=== PATIENT | male | born 1955 | race Caucasian/White ===

== ENCOUNTER 2018-05-31 09:58 | Day surgery (SDC) | payer BC ==
[~2018-05-31 09:58] MED LIST: BALANCED SALT IRRIG SOLN COMB2 15 ML BOTTLE ONE; BUPIVACAINE HCL 0.75% INJ/PF (7.5 MG/1 ML) 10 ML SDV ONE; LIDOCAINE 2%/EPINEPHRINE INJ 20 ML VIAL ONE; POVIDONE-IODINE 5% OPH PREP SOLN 30 ML ONE; TETRACAINE HCL 0.5% OPH SOLN 4 ML ONE; THROMBIN (BOVINE) TOPICAL 5000 UNIT VIAL ONE
[2018-05-31] MEDS ORDERED: LIDOCAINE 2% INJ-PF (20 MG/ML) 10 ML AMPUL ONE (11:49)
[2018-05-31] MEDS ORDERED: MIDAZOLAM 2 MG/2 ML INJ ONE (11:50)
[2018-05-31] MEDS ORDERED: PROPOFOL INJ 200 MG/20 ML VIAL IV ONE (11:50)
[2018-05-31] MEDS ORDERED: FENTANYL CITRATE INJ/PF 100 MCG/2 ML AMPUL ONE (11:50)
[2018-05-31] MEDS: NEO/POLYMYX B SULF/DEXAMETH OPH OINTMENT 3.5 GM ONE ×2 (13:02)
--- NOTE | 2018-05-31 13:32 | [facility] OPERATIVE REPORT E ---
[facility] NAME: KAREN ANDRADE AGE: 62Y DATE OF SURGERY: 05/31/2018 ROOM: PREOPERATIVE DIAGNOSIS: BILATERAL UPPER EYELID DERMATOCHALASIS WITH VISUAL FIELD LOSS. POSTOPERATIVE DIAGNOSIS: BILATERAL UPPER EYELID DERMATOCHALASIS WITH VISUAL FIELD LOSS. OPERATION: Bilateral upper eyelid blepharoplasty. SURGEON: AURORA JONES M.D. ANESTHESIA: Local with MAC. PROCEDURE: The patient was brought to the operating room and both eyes were sterilely prepped and draped in usual manner. Tetracaine drops were placed in the eyes. The upper eyelid crease was marked using a marking pen and 0.3 mm forceps were used to estimate the excess upper eyelid skin to be excised. This was marked in an elliptical fashion. Local anesthesia was administered in the marked site. This consisted of 2% Xylocaine with epinephrine mixed with 0.75% Marcaine. Approximately 4 mL of this was used in both upper eyelids combined. Attention was directed to the left upper lid where the elliptical piece of skin was removed. Hemostasis was obtained with bipolar cautery. A strip of orbicularis was removed. The orbital septum was opened and prolapsed retroseptal fat was grasped with a hemostat, cut, and cauterized. Thrombo was placed on the incision. Identical procedure was performed on the right upper lid. Wound closure was completed using 3 interrupted silk sutures, equally spaced to the lid, taking a deep bite of fascia and completed with running 6-0 nylon sutures. There was full closure of the lids at the end of the surgery and good hemostasis. Maxitrol ointment was placed on both upper lids. Patient tolerated the procedure well and was sent to recovery room in good condition. DICTATING PHYSICIAN: AURORA JONES M.D. [id number] PHY#: [id number] ID: [id number] JOB#: [id number] ACCT: [id number] cc:AURORA JONES M.D. >
--- NOTE | 2018-05-31 13:37 | SURGICARE DISCHARGE SUMMARY E ---
[facility] Discharge Summary NAME: KAREN ANDRADE AGE: 62Y ADMITTED: 05/31/2018 DISCHARGED: 05/31/2018 FINAL DIAGNOSIS: BILATERAL UPPER EYELID DERMATOCHALASIS WITH VISUAL FIELD LOSS. HOSPITAL COURSE: The patient is a 62-year-old gentleman who underwent uneventful upper eyelid blepharoplasty on 05/31/18. He will be discharged to home. He is instructed to use Maxitrol ointment twice a day to his eyelids. To use a blepharoplasty ice pack 10 minutes out of every hour while awake, to keep the head of his bed elevated to 45 degrees and to follow up in my office in 8 days. DICTATING PHYSICIAN: AURORA JONES M.D. [id number] PHY#: [id number] ID: [id number] JOB#: [id number] ACCT: [id number] cc:AURORA JONES M.D. >
== END 2018-05-31 14:12 | disposition home or self-care (01) ==
LOC: SC 09:58
PROVIDERS: ATTEND Ophthalmology
DX: H02.831 Dermatochalasis of right upper eyelid (principal); H02.834 Dermatochalasis of left upper eyelid; H53.453 Other localized visual field defect, bilateral; H04.203 Unspecified epiphora, bilateral; I10 Essential (primary) hypertension; E78.00 Pure hypercholesterolemia, unspecified; I49.9 Cardiac arrhythmia, unspecified; Z85.828 Personal history of other malignant neoplasm of skin; Z79.899 Other long term (current) drug therapy
CPT/HCPCS: 15823; J2250; J3490 ×8; J3010; J2704; 103

== ENCOUNTER → 2019-12-13 | Outpatient (CLI) | payer BC, MEDICARE ==
[2019-12-13 17:22] LABS: APPEARANCE,URINE SLIGHTLY-CLOUDY; BILIRUBIN,URINE NEGATIVE (NEGATIVE); COLOR,URINE YELLOW; GLUCOSE, URINE NEGATIVE (NEGATIVE); KETONES,URINE NEGATIVE (NEGATIVE); LEUKOCYTE ESTERASE,URINE NEGATIVE (NEGATIVE); NITRITE,URINE NEGATIVE (NEGATIVE); PROTEIN,URINE NEGATIVE (NEGATIVE); URINE SPECIFIC GRAVITY 1.023; UROBILINOGEN,URINE NEGATIVE mg/dL (<2.0)
[2019-12-13 17:51] LABS: HEMATOCRIT 46.8 % (37.9-51.0); HEMOGLOBIN 16.7 g/dL (13.5-17.0); MEAN CORPUSCULAR HEMOGLOBIN 32.4 pg (27.0-33.4); MEAN CORPUSCULAR HGB CONC 35.6 g/dL (32.0-36.0); MEAN CORPUSCULAR VOLUME 91 fl (80-97); PLATELET COUNT 197 10^3/uL (150-450); RED BLOOD COUNT 5.15 10^6/uL (4.35-5.55); RED CELL DISTRIBUTION WIDTH 13.3 % (11.5-14.0); WHITE BLOOD COUNT 7.2 10^3/uL (4.0-10.5)
[2019-12-13 18:16] LABS: ALBUMIN 4.5 g/dL (3.5-5.0); ALKALINE PHOSPHATASE 78 U/L (38-126); ANION GAP 10 (5-19); ASPARTATE AMINO TRANSFERASE 49 U/L (17-59); BILIRUBIN,DIRECT 0.3 mg/dL (0.0-0.4); BILIRUBIN,TOTAL 0.8 mg/dL (0.2-1.3); BLOOD UREA NITROGEN 17 mg/dL (7-20); CALCIUM 9.5 mg/dL (8.4-10.2); CARBON DIOXIDE 26 mmol/L (22-30); CHLORIDE 103 mmol/L (98-107); GLUCOSE 90 mg/dL (75-110); POTASSIUM 4.3 mmol/L (3.6-5.0)
--- NOTE | 2019-12-13 19:18 | EKG REPORT ---
SEVERITY:- NORMAL ECG - SINUS RHYTHM : Confirmed by: Selwyn Burgess MD 13-Dec-2019 19:18:16
== END ==
LOC: OD 16:15
PROVIDERS: ATTEND Physician Assistant Medical
DX: I10 Essential (primary) hypertension (principal); R53.81 Other malaise
CPT/HCPCS: 36415; 80053; 81001; 85027; 93005; 93010

== ENCOUNTER → 2019-12-15 | Outpatient (CLI) | payer BC, MEDICARE ==
[2019-12-15 13:20] VITALS: BP 166/77
--- NOTE | 2019-12-15 13:20 | ER RDC ASSESSMENT REPORT ---
Intake - In the Last 14 days Have you traveled outside [place]?: No Have you been in close contact with someone CONFIRMED: No Worked in Healthcare?: No - Symptoms Subjective Fever([place] feverish): No Chills: No Muscule Aches: Yes Runny Nose: No Sore Throat: No Cough (New or worsening chronic cough): Yes Shortness of breath: No Nausea or Vomiting: No Headache: Yes Abdominal Pain: No Diarrhea(3 or more loose stools in last 24 hours): No - Do you have any of the following Chronic lung disease: Asthma or emphysema or COPD: No Cystic Fibrosis: No Diabetes: No High Blood Pressure: Yes Cardiovascular Disease: Yes Chronic Kidney Disease: No Chronic Liver Disease: No Chronic blood disorder like Sickle Cell Disease: No Weak immune system due to disease or medication: No Neurologic condition that limits movement: No Developmental delay - Moderate to Severe: No Morbid Obesity (>100 pounds over ideal weight): No - Objective Temperature: 98.2 F Pulse Rate: 84 Respiratory Rate: 18 Blood Pressure: 166/77 O2 Sat by Pulse Oximetry: 97 Objective: Given above, testing performed: covid Disposition: Home; Selfcare General - General Stated Complaint: fatigue, myalgia, cough Time Seen by Provider: 12/15/19 13:00 Mode of Arrival: Ambulatory Information source: Patient - HPI Notes: 64-year-old male presents to [facility] clinic for COVID-19 testing. Patient denies any known contact with COVID positive individual. Patient reports onset of symptoms 12/04/2019. States he had a couple days of diarrhea that resolved about 1 week ago. Current complaint is complaining of mild myalgia, mild nonproductive cough that is worse at night, and headache. Denies any fever, chills, sore throat, shortness of breath, nausea, vomiting, or abdominal pain. - Related Data Allergies/Adverse Reactions: No Known Allergies Allergy (Verified 05/31/18 11:22) Past Medical History - General Information source: Patient - Social History Smoking Status: Never Smoker - Past Medical History Cardiac Medical History: Reports: Hx Hypertension Denies: Hx Heart Attack Pulmonary Medical History: Reports: None Denies: Hx Asthma EENT Medical History: Reports: None Neurological Medical History: Reports: None. Denies: Hx Cerebrovascular Acci dent, Hx Seizures Endocrine Medical History: Reports: None Renal/ Medical History: Reports: None Malignancy Medical History: Reports Hx Skin Cancer GI Medical History: Reports: None. Denies: Hx Hepatitis, Hx Hiatal Hernia, Hx Ulcer Musculoskeletal Medical History: Reports None Skin Medical History: Reports None Psychiatric Medical History: Reports: None Traumatic Medical History: Reports: None Infectious Medical History: Reports: None. Denies: Hx Hepatitis Past Surgical History: Reports: Other. Denies: Hx Open Heart Surgery, Hx Pacemaker Physical Exam - Vital signs Interpretation: Hypertensive Notes: Patient states he is aware of this. Blood pressures have been around this range well. The past 1 to 2 weeks. He is currently working with primary care doctor and nephrology to adjust blood pressure meds and regain control. - General General appearance: Appears well, Alert In distress: None Notes: PHYSICAL EXAMINATION: GENERAL: Well-appearing and in no acute distress. HEAD: Atraumatic, normocephalic. EYES: sclera anicteric, conjunctiva are normal. ENT: nares patent. Moist mucous membranes. NECK: Normal range of motion, supple without lymphadenopathy. LUNGS: No increased work of breathing. Lung sounds CTAB and equal. No wheezes rales or rhonchi. HEART: Regular rate and rhythm without murmurs. ABDOMEN: Soft, nontender, normal bowel sounds, no guarding. EXTREMITIES: Normal range of motion, no pitting edema. No cyanosis. NEUROLOGICAL: A&O x 3. Normal speech. PSYCH: Normal mood, normal affect. SKIN: Warm, Dry, normal turgor, no rashes or lesions noted Patient Education/Counseling Counseling/Education: Patient presents with symptoms associated with possible Covid 19 infection. Patient does not have emergency worrying symptoms such as difficulty breathing, shortness of breath, chest pain, pressure, confusion or cyanosis. Patient appears suitable for discharge as vital signs are stable and patient is nontoxic in appearance. Good return precautions have been discussed with patient, patient verbalized understanding and is agreeable with discharge plan of care at this time. Guidance for worsening S/SX: As a person under investigation for Covid 19, the [facility] of Health and Human Services, division of public health advises you to adhere to the following guidance until your test results are reported to you. If your test result is positive, you will receive additional information from your provider and your local health department at that time. Remain at home until you are cleared by the health provider or public health authorities. Keep a log of visitors to your home, notify any visitors to your home of your isolation status. If you plan to move to a new address or leave the county, notify the local health department in your County. Call your doctor or seek care if you have an urgent medical need. Before seeking medical care, call ahead to get instructions from the provider before arriving at the medical office clinic or hospital. Notify them that you are being tested for the virus that causes Covid 19 so that arrangements can be made, as necessary, to prevent transmission to others in the healthcare setting. Next, notify the local health department in your county. If a medical emergency arises and you need to call 911, inform the first responders that you are being tested for the virus that causes Covid 19. Next, notify the local health department in your county. RDC Discharge - Discharge Clinical Impression: Encounter for screening laboratory testing for COVID-19 virus Condition: Good Disposition: Home; Selfcare
== END ==
LOC: RDC 12:35
PROVIDERS: ATTEND Registered Nurse
DX: Z20.828 Contact with and (suspected) exposure to other viral communicable diseases (principal); R05 Cough; R51 Headache; R53.83 Other fatigue; M79.10 Myalgia, unspecified site; I10 Essential (primary) hypertension
CPT/HCPCS: U0003; C9803; 87635